=== PATIENT | female | born 1975 | race Caucasian/White ===

== ENCOUNTER 2020-06-03 12:45 | Outpatient (REF) | payer MEDICAID, SELFPAY ==
--- NOTE | 2020-06-03 13:00 | US_ITS ---
EXAMINATION: US PELVIS, COMPLETE CLINICAL INFORMATION: Excessive and frequent menses; the last menstrual period was on 05/26/2020. COMPARISON: None TECHNIQUE: Transabdominal and transvaginal imaging was performed. FINDINGS: The uterus is of normal size and echogenicity measuring 11.9 x 4.5 x 6.2 cm. The uterus is anteverted and anteflexed. A regular homogeneous endometrium is identified measuring 1.1 cm. Nabothian cysts are seen within the cervix Both ovaries are of normal echogenicity and show normal color Doppler flow. The right ovary measures 6.1 x 2.9 x 5.4 cm for a volume of 50.0 mL. The right ovary contains 2.7 cm and 2.7 cm in maximal diameter simple cysts. The left ovary measures 3.6 x 1.8 x 2.5 cm for a volume of 8.5 mL. The left ovary contains a 2.3 cm in maximal diameter simple cyst. There is no pelvic free fluid. No adnexal mass is seen. US/US pelvic complete IMPRESSION: 1. Simple bilateral ovarian cysts are noted, as above. 2. Nabothian cysts are seen within the cervix.
--- NOTE | 2020-06-03 13:02 | US_ITS ---
EXAMINATION: US PELVIS, COMPLETE CLINICAL INFORMATION: Excessive and frequent menses; the last menstrual period was on 05/26/2020. COMPARISON: None TECHNIQUE: Transabdominal and transvaginal imaging was performed. FINDINGS: The uterus is of normal size and echogenicity measuring 11.9 x 4.5 x 6.2 cm. The uterus is anteverted and anteflexed. A regular homogeneous endometrium is identified measuring 1.1 cm. Nabothian cysts are seen within the cervix Both ovaries are of normal echogenicity and show normal color Doppler flow. The right ovary measures 6.1 x 2.9 x 5.4 cm for a volume of 50.0 mL. The right ovary contains 2.7 cm and 2.7 cm in maximal diameter simple cysts. The left ovary measures 3.6 x 1.8 x 2.5 cm for a volume of 8.5 mL. The left ovary contains a 2.3 cm in maximal diameter simple cyst. There is no pelvic free fluid. No adnexal mass is seen. US/US transvaginal IMPRESSION: 1. Simple bilateral ovarian cysts are noted, as above. 2. Nabothian cysts are seen within the cervix.
== END 2020-06-03 12:46 | disposition home or self-care (01) ==
LOC: HO.HMGCX 12:45
PROVIDERS: PCP Internal Medicine; Visit Provider Advanced Practice Midwife
DX: N92.0 Excessive and frequent menstruation with regular cycle (principal)
CPT/HCPCS: 76830; 76856

== ENCOUNTER 2022-05-02 11:00 | Outpatient (RCR) | payer MEDICAID, SELFPAY | END 2022-07-20 08:21 | disposition home or self-care (01) | LOC: HO.PTCHIC 11:00 | PROVIDERS: PCP Internal Medicine; Visit Provider General Practice | DX: M25.562 Pain in left knee (principal) | CPT/HCPCS: 97110; 97161 ==

== ENCOUNTER 2023-05-26 14:20 | Outpatient (REF) | payer MEDICAID, SELFPAY ==
[2023-05-26 19:15] LABS: Influenza A PCR NEGATIVE (Negative); Influenza B PCR NEGATIVE (Negative); Resp Syncy Virus RNA Qual PCR NEGATIVE (Negative); SARS COV2 PCR INHOUSE NEGATIVE (Negative)
== END 2023-05-26 14:21 | disposition home or self-care (01) ==
LOC: HO.CHCLNP 14:20
PROVIDERS: Visit Provider Registered Nurse
DX: R05.9 Cough, unspecified (principal); Z11.52 Encounter for screening for COVID-19
CPT/HCPCS: 0241U; 87070

== ENCOUNTER 2023-08-24 10:54 | Outpatient (REF) | payer MEDICAID, SELFPAY ==
[2023-08-24 14:11] LABS: MANUAL DIFF FLAG NO
[2023-08-24 14:16] LABS: Basophils Absolute Auto 0.1 X10*3/uL (0.0-0.2); Basophils Percent Auto 0.8 % (0-2); Eosinophils Absolute Auto 0.4 X10*3/uL (0.0-0.4); Eosinophils Percent Auto 3.8 % (0-4); Hemoglobin 13.1 g/dl (12.0-16.0); Imm Gran Abs Auto 0.04 X10*3/uL (0.00-0.03); Imm Gran Pct Auto 0.4 % (0.0-0.4); Lymphocytes Absolute Auto 3.6 X10*3/uL (1.2-4.9); Lymphocytes Percent Auto 31.8 % (20-40); Mean Corpuscular HGB Conc 32.8 g/dl (31.0-35.0); Mean Corpuscular Hemoglobin 28.9 pg (27.0-33.0); Mean Corpuscular Volume 88.3 fL (80.0-98.0); Mean Platelet Volume 10.2 fL (9.4-12.3); Monocytes Absolute Auto 0.4 X10*3/uL (0.1-1.2); Monocytes Percent Auto 3.4 % (2-11); Neutrophils Absolute Auto 6.7 x10*3/uL (2.0-8.3); Neutrophils Percent Auto 59.8 % (45-73); Platelet Count 465 X10*3/uL (160-400); Red Blood Count 4.53 X10*6/uL (4.20-5.50); Red Cell Distribution Width 14.8 % (11.0-16.0); White Blood Count 11.2 X10*3/uL (4.8-10.8)
[2023-08-24 14:49] LABS: Alanine Aminotransferase 14 U/L (0-31); Alkaline Phosphatase 83 U/L (39-117); Anion Gap 15 (12-20); Aspartate Amino Transferase 13 U/L (5-31); Bilirubin Total 0.5 mg/dL (0.0-1.0); Blood Urea Nitrogen 12 mg/dL (9-16); Calcium 8.5 mg/dL (8.4-10.2); Carbon Dioxide 29 mmol/L (22-29); Chloride 100 mmol/L (96-108); Cholesterol 245 mg/dL (<200); Estimated Glomerular Filt Rate > 60; Glucose Random 76 mg/dL (60-115); HDL Cholesterol 50 mg/dL (>40); LDL Cholesterol Calculated 164 mg/dL (<100); Potassium 3.9 mmol/L (3.3-5.1); Sodium 140 mmol/L (135-145); Total Protein 7.4 g/dL (6.5-8.0); Triglycerides 156 mg/dL (<150)
[2023-08-24 15:05] LABS: TSH reflex Free T4 1.26 uIU/mL (0.32-4.0)
[2023-08-25 04:42] LABS: HIV AB/AG Nonreactive (Nonreactive); HIV Num 1 0.06 S/CO (0.00-0.99); ~HepC Num1 0.11 S/CO (0.00-0.79); ~Hepatitis C Antibody Nonreactive (Nonreactive)
== END 2023-08-24 10:55 | disposition home or self-care (01) ==
LOC: HO.CHCLDS 10:54
PROVIDERS: Visit Provider Internal Medicine
DX: Z11.4 Encounter for screening for human immunodeficiency virus [HIV] (principal); E11.9 Type 2 diabetes mellitus without complications; E78.00 Pure hypercholesterolemia, unspecified; E03.9 Hypothyroidism, unspecified
CPT/HCPCS: 36415; 80053; 80061; 84443; 85025; 86803; 87389

== ENCOUNTER 2024-08-20 10:11 | Outpatient (REF) | payer MEDICAID, SELFPAY ==
--- NOTE | ~2024-08-20 | XR_ITS ---
EXAMINATION: XR KNEE, RIGHT CLINICAL INFORMATION: Chronic knee pain, I suspect DJD COMPARISON: None available. TECHNIQUE: Three views of the right knee. FINDINGS: No fracture, dislocation, or suspicious bone lesion. Normal bone mineralization. Normal alignment. Moderate medial and mild to moderate patellofemoral and lateral compartment osteoarthrosis. Mild compensatory widening of the lateral compartment. Minimal subchondral sclerosis of the weightbearing medial femoral condyle. Small marginal osteophytic spurs present. There is spurring of the tibial spines. No significant joint effusion. Soft tissues appear normal. XR/XR knee RT 4V IMPRESSION: 1. No acute bony abnormalities. 2. 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 Electronically signed by: Scottie Snowden MD 08/20/2024 12:38 PM [facility]
--- NOTE | ~2024-08-20 | XR_ITS ---
EXAMINATION: XR KNEE, LEFT CLINICAL INFORMATION: Chronic knee pain, I suspect DJD COMPARISON: None available. TECHNIQUE: Three views of the left knee. FINDINGS: No fracture, dislocation, or suspicious bone lesion. Normal bone mineralization. Normal alignment. Mild to moderate medial compartment joint space narrowing with marginal osteophytic spurs. Minimal compensatory widening of the lateral compartment. Mild patellofemoral arthritis. Spurring of the tibial spines present. No significant joint effusion. Soft tissues appear normal. XR/XR knee LT 4V IMPRESSION: 1. No acute bony abnormalities. 2. Mild to moderate tricompartmental osteoarthritis most significant in the medial compartment. Electronically signed by: Scottie Snowden MD 08/20/2024 12:36 PM [facility]
--- OUTSIDE RECORDS SUMMARY | 2024-08-20 11:55 | XMS_ITS | Encounter Summary ---
Author Organization [employer] Address [address] [facility] 7 [place] [address] Care Team Providers Care Portable Trackman Name Role Phone Alhaji Noel MD Primary Care Provider +1- [phone] Reason for Visit * Reason Comments Med Change Request Encounter Details Date Type Department Care Team ([facility] st Contact Info) Description 04/24/[address] [facility] CH[facility] MED & PEDS [address] [place], [place] [phone] Alhaji Noel MD 505 [place] [address] Diabetes mellitus without complication (CMS/HCC) Social History Tobacco Use Types Packs/Day Years Used Date Smoking Tobacco: Never Passive Smoke Exposure: Never Smokeless Tobacco: Never Alcohol Use Standard Drinks/Week Comments Never 0 (1 standard drink = 0.6 oz pur e alcohol) Depression Answer Date Recorded Patient Health Questionnaire-9 Score 3 04/11/2023 Patient Health Questionnaire-9 Score 3 04/11/2023 Last PHQ-9: Questionnaire Data Not on file 1 Housing Stability Answer Date Recorded What is your housing situation today? I have jerri senior 04/11/[address] you li ve. Do you have problems with any of the following? None of the above 04/11/2023 Food Insecurity Answer Date Recorded Within the past 12 months, y ou worried that your food would run out before you got money to buy more: Never True 04/11/2023 Within the past 12 months,th e food you bought just didn't last and you didn't have enough money to get more: Never True Transportation Answer Date Recorded In the past 12 months, has l ack of transportation kept you from medical appts, meetings, work or from getting things needed for daily living? Yes, it has kept me from medical appointments or getting medications. 04/06/2023 Utilities Answer Date Recorded In the past 12 months, has t he electric, gas, oil or water company threatened to shut off services in your home? No 04/11/2023 Depression Answer Date Recorded Patient Health Questionnaire-2 Score 0 04/11/2023 Comments No Sex and Gender Information Value Date Recorded Sex Assigned at Female 04/25/2022 10:19 AM EDT Legal Sex Female 10:19 AM EDT Gender Identity Female 04/25/2022 10:19 AM EDT Sexual Orientation Straight 04/25/2022 10 :19 AM EDT documented as of this encounter Plan of Treatment Upcoming Encounters Date Type Department Care Team (Late st Contact Info) Description 09/20/2024 10:30 AM EDT Office Visit [facility] OPTOMETRY [address] [place] [address] Rafa, Maranda, OD [address] [place] [address] documented as of this encounter Visit Diagnoses Diagnosis Diabetes mellitus without complication (CMS/HCC) Type II or unspecified type diabetes mellitus without mention of complication, not stated as uncontrolled documented in this encounter Additional Health Concerns Assessment Noted Time PHQ-9 Depression Total Score: 3 04/11/20 23 10:36 AM EDT documented as of this encounter Care Teams Portable Trackman Relationship Specialty Start Date End Date Alhaji Noel MD [address] [place] [address] PCP - General Internal Medicine 06/26/18 Leslie Rojas Table Tender SludgeGate Operator 10/31/23 documented as of this encounter
--- OUTSIDE RECORDS SUMMARY | 2024-08-20 11:55 | XMS_ITS | Encounter Summary ---
Author Organization [employer] Address [address] [facility] [address] [place] [address] Care Team Providers Care Bilingual Executive Assistant Name Role Phone Alhaji Noel MD Primary Care Provider +1- [phone] Encounter Details Date Type Department Care Team ([facility] st Contact Info) Description 07/26/2024 Telephone [facility] OPTOMETRY [address] [place], [place] [phone] Rafa, Maranda, OD [address] [place] [address] Social History Tobacco Use Types Packs/Day Years [...] Description 09/20/2024 10:30 AM EDT Office Visit [facility] OPTOMETRY [address] [place], [place] [phone] Rafa, Maranda, OD [address] [place] [address] documented as of this encounter Visit Diagnoses Not on filedocumented in this encounter Additional Health Concerns Assessment Noted Time PHQ-9 Depression Total Score: 3 04/11/20 23 10:36 AM EDT documented as of this encounter Care Teams Bilingual Executive Assistant Relationship Specialty Start Date End Date Alhaji Noel MD [address] [place] [address] PCP - General Internal Medicine 06/26/18 Leslie Rojas Canal Boat OperatorStadium Manager 10/31/23 documented as of this encounter
--- OUTSIDE RECORDS SUMMARY | 2024-08-20 11:55 | XMS_ITS | Encounter Summary ---
Author Organization [employer] Address [address] [place] [address] 7 [place] [address] Care Team Providers Care Truck Jumper Name Role Phone Alhaji Noel MD Primary Care Provider +1- [phone] Encounter Details Date Type Department Care Team (Late Contact Info) Description 02/08/2023 Orders Only [facility] CHC MED & PEDS [address] [place], [place] [phone] Alhaji Noel MD [address] [place], [place] [phone] Diabetes mellitus without complication (CMS/HCC) (Primary Dx) Social History Tobacco Use Types Packs/Day Years Used Date Smoking Tobacco: Never Passive Smoke Exposure: Never Smokeless Tobacco: Never Alcohol Use Standard Drinks/Week Comments Never 0 (1 standard drink = 0.6 oz pur e alcohol) Comments No Sex and Gender Information Value Date Recorded Sex Assigned at Female 04/25/2022 10:19 AM EDT Legal Sex Female 10:19 AM EDT Gender Identity Female 04/25/2022 10:19 AM EDT Sexual Orientation Straight 04/25/2022 10 :19 AM EDT documented as of this encounter Plan of Treatment Upcoming Encounters Date Type Department Care Team (Late Contact Info) Description 09/20/2024 10:30 AM EDT Office Visit [facility] OPTOMETRY [address] [place], [place] [phone] RafaMaranda momin, OD [address] [place], [place] [phone] documented as of this encounter Visit Diagnoses Diagnosis Diabetes mellitus without complication (CMS/HCC)- Primary Type II or unspecified type diabetes mellitus without mention of complication, not stated as uncontrolled documented in this encounter Care Teams Truck Jumper Relationship Specialty Start Date End Date Alhaji Noel MD [address] [place] [address] PCP - General Internal Medicine 06/26/18 Leslie Rojas Interactive Web DeveloperMetal Roofing Mechanic 10/31/23 documented as of this encounter
--- OUTSIDE RECORDS SUMMARY | 2024-08-20 11:55 | XMS_ITS | Encounter Summary ---
Author Organization [employer] Address [address] [facility] 7 [place] [address] Care Team Providers Care Bariatric Physician Name Role Phone Alhaji Noel MD Primary Care Provider +1- [phone] Reason for Visit * Reason Onset Date Comments PT1 06/12/2024 Encounter Details Date Type Department Care Team ([facility] st Contact Info) Description 06/12/2024 Telephone [facility] MEDICINE [address] [place] [address] Alhaji Noel MD [address] [facility] [address] [place], [place] [phone] PT1 Social History Tobacco Use Types Packs/Day Years [...] is your housing situation today? I have jerridale senior 04/11/[address] you [...] AM EDT documented as of this encounter Miscellaneous Notes * Telephone Encounter - Yassine Saba - 06/12/2024 3:20 PM EST Patient calling requesting PT1 Home Address verified: Y/N: Yes Provider name or facility name: [address] [facility] [address] Escort needed: Y/N: No Do you have a wheelchair: Y/N: No If yes- Manual or electric: Visits: (4) (monthly) Patient calling requesting PT1 Home Address verified: Y/N: No Provider name or facility name: [address] [facility] [address] Escort needed: Y/N: No Do you have a wheelchair: Y/N: No If yes- Manual or electric: Visits: (4) ( monthly) documented in this encounter Plan of Treatment Upcoming Encounters Date Type Department Care Team (Late st Contact Info) Description 09/20/2024 10:30 AM EDT Office Visit [facility] OPTOMETRY [address] [place] [address] Rafa, Maranda, OD [address] [place] [address] documented as of this encounter Visit Diagnoses Not on filedocumented in this encounter Additional Health Concerns Assessment Noted Time PHQ-9 Depression Total Score: 3 04/11/20 23 10:36 AM EDT documented as of this encounter Care Teams Bariatric Physician Relationship Specialty Start Date End Date Alhaji Noel MD [address] [place] [address] PCP - General Internal Medicine 06/26/18 Leslie Rojas Furniture StainerClerk Carrier 10/31/23 documented as of this encounter
--- OUTSIDE RECORDS SUMMARY | 2024-08-20 11:55 | XMS_ITS | Encounter Summary ---
Author Organization [employer] Address [address] [facility] 7 [place] [address] Care Team Providers Care Pediatric Orthodontist Name Role Phone Alhaji Noel MD Primary Care Provider +1- [phone] Reason for Visit * Reason Onset Date Comments Med Refill 07/17/2023 Encounter Details Date Type Department Care Team (Late st Contact Info) Description 07/17/2023 Refill [facility] [address] [place] [address] Alhaji Noel MD [address] [facility] [address] [place], [place] [phone] Localized osteoarthritis of left knee Social History Tobacco Use Types Packs/Day Years [...] your housing situation today? I have jerri nadeen 04/11/[address] you li [...] Description 09/20/2024 10:30 AM EDT Office Visit [facility] OPTOMETRY [address] [place] [address] Rafa, Maranda, OD [address] [place] [address] documented as of this encounter Visit Diagnoses Diagnosis Localized osteoarthritis of left knee documented in this encounter Additional Health Concerns Assessment Noted Time PHQ-9 Depression Total Score: 3 04/11/20 23 10:36 AM EDT documented as of this encounter Care Teams Pediatric Orthodontist Relationship Specialty Start Date End Date Alhaji Noel MD [address] [place] [address] PCP - General Internal Medicine 06/26/18 Leslie Rojas Senior Automation EngineerSnow Remover 10/31/23 documented as of this encounter
--- OUTSIDE RECORDS SUMMARY | 2024-08-20 11:55 | XMS_ITS | Encounter Summary ---
Author Organization [employer] Address [address] [facility] 7 [place] [address] Care Team Providers Care Optimization Specialist Name Role Phone Alhaji Noel MD Primary Care Provider +1- [phone] Reason for Visit * Reason Comments Med Change Request Encounter Details Date Type Department Care Team ([facility] st Contact Info) Description 04/26/[address] [facility] CHC MED & PEDS [address] [place], [place] [phone] Alhaji Noel MD 505 [place] [address] Diabetes mellitus without complication (CMS/HCC) Social History [...] Description 09/20/2024 10:30 AM EDT Office Visit [facility] OPTOMETRY [address] [place] [address] Rafa, Maranda, OD [address] [place] [address] documented as of this encounter Visit Diagnoses Diagnosis Diabetes mellitus without complication (CMS/HCC) Type II or unspecified type diabetes mellitus without mention of complication, not stated as uncontrolled documented in this encounter Additional Health Concerns Assessment Noted Time PHQ-9 Depression Total Score: 3 04/11/20 23 10:36 AM EDT documented as of this encounter Care Teams Optimization Specialist Relationship Specialty Start Date End Date Alhaji Noel MD [address] [place] [address] PCP - General Internal Medicine 06/26/18 Leslie Rojas Activities AttendantWood Filler 10/31/23 documented as of this encounter
--- OUTSIDE RECORDS SUMMARY | 2024-08-20 11:55 | XMS_ITS | Encounter Summary ---
Author Organization [employer] Address [address] [facility] 7 [place] [address] Care Team Providers Care Historic Clothing And Costume Maker Name Role Phone Alhaji Noel MD Primary Care Provider +1- [phone] Reason for Visit * Reason Onset Date Comments PT-1 02/14/2024 Encounter Details Date Type Department Care Team (Late st Contact Info) Description 02/14/2024 Telephone [facility] MEDICINE [address] [place] [address] Alhaji Noel MD [address] [facility] [address] [place], [place] [phone] PT-1 Social History Tobacco Use Types Packs/Day Years [...] encounter Miscellaneous Notes * Telephone Encounter - Julio Diaz - 02/14/2024 11:17 AM EDT Patient calling requesting PT1 Home Address verified: Y/N: Yes Provider name or facility name: [facility] Facility Address: [address] [place] [address] Escort needed: Y/N: No Do you have a wheelchair: Y/N: No If yes- Manual or electric: N/A Visits: 3 monthly documented in this encounter Plan of Treatment Upcoming Encounters Date Type Department Care Team (Late st Contact Info) Description 09/20/2024 10:30 AM EDT Office Visit [facility] OPTOMETRY [address] [place] [address] Maranda Craig, OD [address] [place] [address] documented as of this encounter Visit Diagnoses Not on filedocumented in this encounter Additional Health Concerns Assessment Noted Time PHQ-9 Depression Total Score: 3 04/11/20 23 10:36 AM EDT documented as of this encounter Care Teams Historic Clothing And Costume Maker Relationship Specialty Start Date End Date Alhaji Noel MD 505 [place] [address] PCP - General Internal Medicine 06/26/18 Leslie Rojas Director Of Public HealthFax Machine Repairer 10/31/23 documented as of this encounter
--- OUTSIDE RECORDS SUMMARY | 2024-08-20 11:55 | XMS_ITS | Encounter Summary ---
Author Organization [employer] Address [address] [facility] 7 [place] [address] Care Team Providers Care Supervisor Asphalt Paving Name Role Phone Alhaji Noel MD Primary Care Provider +1- [phone] Reason for Visit * Reason Onset Date Comments rs appt/.no show 04/01/2024 Encounter Details Date Type Department Care Team ([facility] Contact Info) Description 04/01/2024 Telephone [facility] ADULT DENTAL [address] [place] [address] BeltránSheryl milesanpreet [address] [place], [place] [phone] rs appt/.no show Social History Tobacco Use Types Packs/Day Years [...] encounter Miscellaneous Notes * Telephone Encounter - Felicita Lafleur - 04/11/2024 8:39 AM EDT Patient called in to rs her no show appt on 04/01. She is aware that she must wait for a call from [facility] to reschedule the appt due to no show. She explained that she is in pain and infection. Explained to patient the emergency visit protocol. She said she could not come in today due to having her child at home but will call another day * Telephone Encounter - Felicita Lafleur - 04/01/2024 2:21 PM EDT Patient called in to reschedule her no show appt on 04/01. She states she was in another appt with her children and was unable to call because her phone . Patient has been informed that office will contact her for rescheduling. DR Solizally signed by Felicita Lafleur at 04/01/2024 2:24 PM EDT documented in this encounter Plan of Treatment Upcoming Encounters Date Type Department Care Team (Late st Contact Info) Description 09/20/2024 10:30 AM EDT Office Visit [facility] OPTOMETRY [address] [place] [address] Maranda Craig, OD [address] [place] [address] documented as of this encounter Visit Diagnoses Not on filedocumented in this encounter Additional Health Concerns Assessment Noted Time PHQ-9 Depression Total Score: 3 04/11/20 23 10:36 AM EDT documented as of this encounter Care Teams Supervisor Asphalt Paving Relationship Specialty Start Date End Date Alhaji Noel MD [address] [place] [address] PCP - General Internal Medicine 06/26/18 Leslie Rojas Auto Body Mechanic ApprenticeCottage Attendant 10/31/23 documented as of this encounter
--- OUTSIDE RECORDS SUMMARY | 2024-08-20 11:55 | XMS_ITS | Encounter Summary ---
Author Organization [employer] Address 75 [facility] 7 [place] [address] Care Team Providers Care Estimator Binding Name Role Phone Alhaji Noel MD Primary Care Provider +1- [phone] Reason for Visit * Reason Onset Date Comments Med Refill 07/17/2023 Encounter Details Date Type Department Care Team ([facility] st Contact Info) Description 07/17/2023 Refill [facility] MED & PEDS [address] [place] [address] Shyla Zuniga MD [address] [place] [address] Viral upper respiratory tract infection Social History Tobacco Use Types Packs/Day Years [...] Description 09/20/2024 10:30 AM EDT Office Visit [facility] OPTOMETRY [address] [place] [address] RafaMaranda, OD [address] [place] [address] documented as of this encounter Visit Diagnoses Diagnosis Viral upper respiratory tract infection Acute upper respiratory infections of unspecified site documented in this encounter Additional Health Concerns Assessment Noted Time PHQ-9 Depression Total Score: 3 04/11/20 23 10:36 AM EDT documented as of this encounter Care Teams Estimator Binding Relationship Specialty Start Date End Date Alhaji Noel MD [address] [place] [address] PCP - General Internal Medicine 06/26/18 Leslie Rojas Marine Fuel Dock AttendantPipelayer 10/31/23 documented as of this encounter
--- OUTSIDE RECORDS SUMMARY | 2024-08-20 11:55 | XMS_ITS | Encounter Summary ---
Author Organization [employer] Address [address] [facility] 7 [place] [address] Care Team Providers Care Machine Pack Assembler Name Role Phone Alhaji Noel MD Primary Care Provider +1- [phone] Reason for Visit * Reason Comments Med Refill Encounter Details Date Type Department Care Team (Late st Contact Info) Description 08/06/2024 Refill [facility] [address] [place] [address] Alhaji Noel MD [address] [facility] [address] [place], [place] [phone] Social History Tobacco Use Types Packs/Day Years [...] Description 09/20/2024 10:30 AM EDT Office Visit [facility] OPTOMETRY [address] [place] [address] Rafa, Maranda, OD [address] [facility] [address] documented as of this encounter Visit Diagnoses Not on filedocumented in this encounter Additional Health Concerns Assessment Noted Time PHQ-9 Depression Total Score: 3 04/11/20 23 10:36 AM EDT documented as of this encounter Care Teams Machine Pack Assembler Relationship Specialty Start Date End Date Alhaji Noel MD [address] [place] [address] PCP - General Internal Medicine 06/26/18 Leslie Rojas Cloth HandlerPolice Service Technician 10/31/23 documented as of this encounter
--- OUTSIDE RECORDS SUMMARY | 2024-08-20 11:55 | XMS_ITS | Encounter Summary ---
Author Organization [employer] Address [address] [facility] 7 [place] [address] Care Team Providers Care Shearer Operator Name Role Phone Alhaji Nole MD Primary Care Provider +1- [phone] Encounter Details Date Type Department Care Team (Latest Contact Info) Description 08/25/2023 Orders Only [facility] CHC MED & PEDS [address] [place], [place] [phone] Alhaji Noel MD 505 [place] [address] Hypercholesterolemia (Primary Dx) Social History Tobacco Use Types [...] enough money to get more: Never True 10/ Transportation Answer Date Recorded In the past [...] Description 09/20/2024 10:30 AM EDT Office Visit [facility] OPTOMETRY [address] [place] [address] RafaMaranda, OD [address] [place] [address] documented as of this encounter Visit Diagnoses Diagnosis Hypercholesterolemia- Primary Pure hypercholesterolemia documented in this encounter Additional Health Concerns Assessment Noted Time PHQ-9 Depression Total Score: 3 04/11/20 23 10:36 AM EDT documented as of this encounter Care Teams Shearer Operator Relationship Specialty Start Date End Date Alhaji Noel MD [address] [place] [address] PCP - General Internal Medicine 06/26/18 Leslie Rojas Canvas MarkerCirculation Tender 10/31/23 documented as of this encounter
--- OUTSIDE RECORDS SUMMARY | 2024-08-20 11:55 | XMS_ITS | Encounter Summary ---
Author Organization [employer] Address [address] [facility] 7 [place] [address] Care Team Providers Care Solar Engineer Name Role Phone Alhaji Noel MD Primary Care Provider Reason for Visit * Reason Onset Date Comments Med Refill 06/13/2022 Encounter Details Date Type Department Care Team (Late st Contact Info) Description 06/13/2022 Refill [facility] [address] [place] [address] Alhaji Noel MD [address] [place], [place] [id number] Mild intermittent asthma without complication (Primary Dx) Social History Tobacco Use Types Packs/Day Years Used Date Smoking Tobacco: Never Passive Smoke Exposure: Never Smokeless Tobacco: Never Alcohol Use Standard Drinks/Week Comments Never 0 (1 standard drink = 0.6 oz pur e alcohol) Comments Unknown Sex and Gender Information Value Date Recorded Sex Assigned at Female 04/25/2022 10:19 AM EDT Legal Sex Female 10:19 AM EDT Gender Identity Female 04/25/2022 10:19 AM EDT Sexual Orientation Straight 04/25/2022 10 :19 AM EDT COVID-19 Exposure Response Date Recorded In the last 10 days, have yo u been in contact with someone who was confirmed or suspected to have Coronavirus/COVID-19? No / Unsure 06/03/2022 1:17 PM EST documented as of this encounter Miscellaneous Notes * Telephone Encounter - Fabricio Davis - 06/13/2022 4:49 PM EST Tc from pt requesting medication refill ( Albuterol 180 ) Last seen on 04/05/[address] Noel documented in this encounter Plan of Treatment Upcoming Encounters Date Type Department Care Team (Late st Contact Info) Description 09/20/2024 10:30 AM EDT Office Visit [facility] [address] [place] [address] Maranda Craig, OD [address] [place] [address] documented as of this encounter Visit Diagnoses Diagnosis Mild intermittent asthma without complication- Primary documented in this encounter Care Teams Solar Engineer Relationship Specialty Start Date End Date Alhaji Noel MD [address] [place] [address] PCP - General Internal Medicine 06/26/18 Leslie Rojas Yacht MasterProfessor Of Oceanography 10/31/23 documented as of this encounter
--- OUTSIDE RECORDS SUMMARY | 2024-08-20 11:55 | XMS_ITS | Encounter Summary ---
Author Organization [employer] Address [address] [place] [address] 7 [place] [address] Care Team Providers Care Rounding Machine Tender Name Role Phone Alhaji Noel MD Primary Care Provider +1- [phone] Reason for Visit * Reason Onset Date Comments PT1 07/02/2024 Encounter Details Date Type Department Care Team ([facility] st Contact Info) Description 07/02/2024 Telephone [facility] [address] [place] [address] Alhaji Noel MD [address] [place] [address] PT1 Social History Tobacco Use Types Packs/Day [...] encounter Miscellaneous Notes * Telephone Encounter - Mariya Hernandez - 07/02/2024 11:34 AM EST Patient calling requesting PT1 Home Address verified: Y/N: Yes Provider name or facility name: [facility] Facility Address: [address] [facility] Escort needed: Y/N: No Do you have a wheelchair: Y/N: No If yes- Manual or electric: n/a Visits: 4x a month documented in this encounter Plan of Treatment Upcoming Encounters Date Type Department Care Team (Late st Contact Info) Description 09/20/2024 10:30 AM EDT Office Visit [facility] [address] [place] [address] Maranda Craig, OD [address] [place] [address] documented as of this encounter Visit Diagnoses Not on filedocumented in this encounter Additional Health Concerns Assessment Noted Time PHQ-9 Depression Total Score: 3 04/11/20 23 10:36 AM EDT documented as of this encounter Care Teams Rounding Machine Tender Relationship Specialty Start Date End Date Alhaji Noel MD [address] [place] [address] PCP - General Internal Medicine 06/26/18 Leslie Rojsa Sales Solutions AssociateHydroelectric Machinery Mechanic 10/31/23 documented as of this encounter
--- OUTSIDE RECORDS SUMMARY | 2024-08-20 11:55 | XMS_ITS | Encounter Summary ---
Author Organization [employer] Address [address] [place] [address] [place] [address] Care Team Providers Care [employer] Law Clerk Name Role Phone Alhaji Noel MD Primary Care Provider +1- [phone] Encounter Details Date Type Department Care Team (Latest Contact Info) Description 08/04/[address] [facility] Dental, Provider, DDS Social History Tobacco Use Types Packs/Day Years Used Date Smoking Tobacco: Never Assessed Comments Unknown Sex and Gender Information Value [...] 09/20/2024 10:30 AM EDT Office Visit [facility] [address] [place] [address] Maranda Craig, OD [address] [place] [address] documented as of this encounter Visit Diagnoses Not on filedocumented in this encounter Care Teams [employer] Law Clerk Relationship Specialty Start Date End Date Alhaji Noel MD [address] [place] [address] PCP - General Internal Medicine 06/26/18 Leslie Rojas Learning Disabilities SpecialistRoller Printer 10/31/23 documented as of this encounter
--- OUTSIDE RECORDS SUMMARY | 2024-08-20 11:55 | XMS_ITS | Clinical Summary ---
Author Organization [facility] Address [address] [place] [address] Care Team Providers Care Tool Salvage Worker Name Role Phone Alhaji Noel MD Primary Care Provider +1 -[phone] Allergies No known active allergies Medications calcium citrate-vitamin D (Calcium Citrate + D) 315 mg-5 mcg (200 unit) per tablet Take 2 tablets by mouth 3 times daily. Active FREESTYLE LANCETS MISC Test three times a day or as directed Active glucose blood test strip TEST 4 TIMES DAILY Active ibuprofen (ADVIL,MOTRIN) 800 mg tablet TAKE 1 TABLET BY MOUTH EVERY 8 HOURS NEEDED FOR PAIN Active multivitamin/ir on/folic acid (CENTRUM ORAL) Take 1 Tab by mouth daily. Active albuterol HFA (PROAIR HFA ; PROVENTIL HFA ; VENTOLIN HFA) 90 mcg/actuation inhaler Inhale 2 Puffs into the lungs 4 times daily as needed for Cough, Wheezing or Shortness of Breath. Active cholecalciferol (VITAMIN D-3) 1,250 mcg (50,000 unit) capsule Take 1 Cap by mouth every 7 days. Active cloNIDine (CATAPRES) 0.1 mg tablet TAKE 1 TABLET(S) BY MOUTH AT BEDTIME MAY TAKE 2 AND 1 FOR MID-NIGHT AWAKENING Active famotidine (PEPCID) 40 mg tablet Take 1 Tab by mouth daily. Active fluticasone HFA (FLOVENT HFA) 110 mcg/actuation inhaler Inhale 2 Puffs into the lungs 2 times daily. Active levothyroxine (SYNTHROID, LEVOTHROID) 100 mcg tablet Take 1 Tab by mouth daily. Take 1/2 tab on Monday Active loratadine (CLARITIN) 10 mg tablet Take 1 Tab by mouth daily. Active metFORMIN (GLUCOPHAGE) 500 mg tablet TAKE 1 TABLET TWICE A DAY WITH MEALS Active sertraline (ZOLOFT) 100 mg tablet Take 1 Tab by mouth 2 times daily. Active simvastatin (ZOCOR) 20 mg tablet Take 1 Tab by mouth at bedtime. Active Active Problems Problem Noted Date Diagnosed Date Depression 07/11/2024 Hypothyroidism 07/11/2024 Hypocalcemia 10/27/2014 Hyperparathyroidism 09/30/2014 Overview (07/11/2024): 3 gland excision, 09/24/2014, Dr. Swartz Asthma 07/31/2013 Vitamin D deficiency 05/15/2013 Hyperlipidemia 11/04/2011 Diabetes type 2, controlled 02/08/2010 Intellectual disability 04/08/2009 Overview (07/11/2024): DSS has other 3 children Threatening to take present baby out of state right after delivery Morbid obesity 11/19/2008 Immunizations Name Administration Dates Next Due H1N1 Inj Preservative Free 04/13/2009 Influenza trivalent, with pr eservative (Fluzone; Afluria) 6mo and older 04/02/2012,04/22/2010,03/06/2009 Pneumococcal polysaccharide 23 valent (Pneumovax 23) 2yo and older 11/21/2013 Tdap Tetanus diptheria acell ular pertussis (Boostrix; Adacel) 7yo and older 10/10/2007 Surgical History Surgery Date Site/Laterality Comments TONSILLECTOMY PROCEDURE: HISTORICAL TONSILLECTOMY Medical History Medical History Date Comments Depression DX:Depression Diabetes type 2, controlled ([facility]) 02/08/2010 DX:Diabetes type 2, controlled ([facility]) Hyperlipidemia DX:Hyperlipidemi a Morbid obesity ([facility]) DX:Morb id obesity (HCC) RAD (reactive airway disease) DX :RAD (reactive airway disease) Family History Medical History Relation Name Comments Colon cancer Father Other: COPD Father Breast cancer Maternal Grandmother unknow n age at diagnosis Ovarian cancer Neg Hx Uterine cancer Neg Hx Relation Name Status Comments Father Alive Maternal Grandmother breast cancer in late 30's Mother Alive Sister 1 Alive Sister 2 Alive Sister 3 Alive Social History Tobacco Use Types Packs/Day Years Used Date Smoking Tobacco: Never Smokeless Tobacco: Never Alcohol Use Standard Drinks/Week Comments No 0 (1 standard drink = 0.6 oz pur e alcohol) Comments Unknown Sex and Gender Information Value Date Recorded Sex Assigned at Not on file Legal Sex Female 2:36 AM EST Gender Identity Not on file Sexual Orientation Not on file Obstetrics History Plan of Treatment Upcoming Encounters Date Type Department Care Team (Late st Contact Info) Description 08/30/2024 9:00 AM EST Consult [facility] [address] [place] [address] Leisa Aparicio MD [address] [place] [address] Health Maintenance Due Date Last Done Comments Breast Cancer Screening 1975 Diabetes: Annual Foot Exam 1985 Diabetes: Annual Retina Eye Exam 1985 Hepatitis B Vaccines (1 of 3 - 19+ 3-dose series) 1994 Pneumococcal Vaccine: Pediatrics (0 to 5 Years) and At-Risk Patients (6 to 64 Years) (2 of 2 - PCV) 11/21/2014 11/21/2013 Diabetes: Annual GFR (Glomerular Filtration Rate) 10/02/2015 10/01/2014 Cervical Cancer Screening: Pap Smear 11/02/2015 11/01/2012, 11/01/2012 DTaP,Tdap,and Td Vaccines (2 - Td or Tdap) 10/09/2017 10/10/2007 COVID-19 Vaccine ( season) 2024 Influenza Vaccine (#1) 2024 2, 04/22/2010, 04/13/2009, Additional history exists Cholesterol Screening (Lipid Panel) 07/10/2024 08/29/2014 Colorectal Cancer Screening: Colonoscopy 07/10/2024 Depression Screening 07/10/2024 Diabetes: Annual Urine Albumin-Creatinine Ratio (uACR) 07/10/2024 08/29/2014 Diabetes: Blood Sugar Control Test (HGBA1C) 07/10/2024 08/29/2014 Hepatitis C Screening 07/10/2024 Social Influencers of Health Screening 07/10/2024 HIV Screening Completed 09/13/2008 HIB Vaccines Aged Out No longer eligi ble based on patient's age to complete this topic HPV Vaccines Aged Out No longer eligi ble based on patient's age to complete this topic Hepatitis A Vaccines Aged Out No long er eligible based on patient's age to complete this topic IPV Vaccines Aged Out No longer eligi ble based on patient's age to complete this topic MMR Vaccines Aged Out No longer eligi ble based on patient's age to complete this topic Meningococcal ACWY Vaccine Aged Out N o longer eligible based on patient's age to complete this topic Meningococcal B Vacine Aged Out No lo nger eligible based on patient's age to complete this topic RSV Immunization Patients Under 20 months Aged Out No longer eligible based on patient's age to complete this topic Varicella Vaccines Aged Out No longer eligible based on patient's age to complete this topic Procedures Procedure Name Priority Date/Time Associated Diagnosis Comments ANNUAL BMP BLOOD TEST Routine 10/01/2014 URINE ALBUMIN CREATININE RATIO Routine 08/29/2014 HEMOGLOBIN A1C Routine 08/29/2014 LIPID PANEL Routine 08/29/2014 HPV Routine 11/01/2012 HIV SCREENING Routine 09/13/2008 from Last 3 Months or Most Recently Relevant to Health Maintenance Results * Annual BMP Blood Test (10/01/2014) Pathologist [facility] Annual BMP Blood Test abstracted Historical Provider HEALTH MAINTENANCE Final Result * Urine Albumin Creatinine Ratio (08/29/2014) Pathologist [facility] Urine Albumin Creatinine Ratio abstracted Historical Provider HEALTH MAINTENANCE Final Result * Hemoglobin A1c (08/29/2014) Pathologist [facility] Hemoglobin A1C 5.7 4.0 - 6.0 % Blood Venous blood specimen / Unknown Historical Provider LAB BLOOD ORDERABLES Barbara l Result * (ABNORMAL) Lipid panel (08/29/2014) [facility] LDL/HDL Ratio 6(A) 0 - 4 Triglycerides 194(A) 0 - 150 mg/dL Cholesterol 253(A) 0 - 200 mg/dL HDL 44 >=40 mg/dL LDL Cholesterol 171(A) 0 - 100 mg/dL Blood Venous blood specimen / Unknown Historical Provider LAB BLOOD ORDERABLES Barbara l Result * Cervical Cancer Screening: HPV (11/01/2012) [facility] Cervical Cancer Screening: HPV no interpretation abstracted [facility] Provider HEALTH MAINTENANCE Final Result * HIV Screening (09/13/2008) [facility] HIV Screening abstracted [facility] Provider HEALTH MAINTENANCE Final Result from Last 3 Months or Most Recently Relevant to Health Maintenance Insurance MEDICAID - [place] Care Teams Tool Salvage Worker Relationship Specialty Start Date End Date Alhaji Noel MD [address] [place], [place] PCP - General 07/25/15
--- OUTSIDE RECORDS SUMMARY | 2024-08-20 11:55 | XMS_ITS | Encounter Summary ---
Author Organization [employer] Address [address] [facility] 7 [place] [address] Care Team Providers Care Cognos Consultant Name Role Phone Alhaji Noel MD Primary Care Provider +1- [phone] Reason for Visit * Reason Onset Date Comments Med Refill 07/17/2023 Encounter Details Date Type Department Care Team ([facility] st Contact Info) Description 07/17/2023 Refill [facility] PEDS [address] [place] [address] Bhakti Raymond MD [address] [place] [address] Social History Tobacco Use Types Packs/Day Years [...] Description 09/20/2024 10:30 AM EDT Office Visit [facility] [address] [place] [address] Rafa, Maranda, OD [address] [place] [address] documented as of this encounter Visit Diagnoses Not on filedocumented in this encounter Additional Health Concerns Assessment Noted Time PHQ-9 Depression Total Score: 3 04/11/20 23 10:36 AM EDT documented as of this encounter Care Teams Cognos Consultant Relationship Specialty Start Date End Date Alhaji Noel MD [address] [place] [address] PCP - General Internal Medicine 06/26/18 Leslie Rojas Figure Refinisher And RepairerRug Cleaner Hand 10/31/23 documented as of this encounter
--- OUTSIDE RECORDS SUMMARY | 2024-08-20 11:55 | XMS_ITS | Encounter Summary ---
Author Organization [employer] Address [address] [facility] 7t [place] [address] Care Team Providers Care Recreation Facility Manager Name Role Phone Alhaji Noel MD Primary Care Provider +1- [phone] Reason for Referral * Consultation (Routine) - Closed Specialty Diagnoses / Procedures Referred By Contac t Referred To Contact Physical Therapy Diagnoses Chronic knee pain, unspecified laterality Trevor [place] MD [address] [place] [address] Phone: tel: fax: Physical Therapy, AT [address] [place] Phone: tel: fax: Referral ID Status Reason Start Date Expiration Date V isits Requested Visits Authorized [id number] Closed Specialty Services Required 08/20/2024 08/20/2025 20 20 Reason for Visit * Reason Comments Leg Pain Encounter Details Date Type Department Care Team (Late st Contact Info) Description 08/20/2024 9:40 AM EST Office Visit [facility] [address] [place] [phone] Trevor Dowling MD [address] [place] [phone] Chronic knee pain, unspecified laterality (Primary Dx) Social History Tobacco Use Types [...] AM EDT documented as of this encounter Last Filed Vital Signs Vital Sign Reading Time Taken Comments Blood Pressure 140/82 08/20/2024 9:44 AM EST Pulse 74 08/20/2024 9:44 AM EST Temperature 36.8 ??C (98.3 ??F) 08/20/2024 9:44 AM ES T Respiratory Rate 18 08/20/2024 9:44 AM EST Oxygen Saturation 98% 08/20/2024 9:44 AM EST Inhaled Oxygen Concentration - - Weight 149 kg (329 lb) 08/20/2024 9:44 AM EST Height - - Body Mass Index 60.17 06/24/2024 2:04 PM EST documented in this encounter Progress Notes * Trevor Dowling MD - 08/20/2024 9:40 AM EST Subjective Patient ID: Belle Woody is a 49 y.o. female who presents for Leg Pain. Patient comes complaining of chronic bilateral knee pain. Pain is worse with weightbearing activities. The patient can walk for less than half a block because of the pain. She has a past medical history of morbid obesity. She denies any recent trauma. She has been using Tylenol and ibuprofen at home without symptomatic improvement. Review of Systems Constitutional: Negative for chills and fever. HENT: Negative for sore throat. Respiratory: Negative for cough, shortness of breath and wheezing. Cardiovascular: Negative for chest pain, palpitations and leg swelling. Gastrointestinal: Negative for abdominal pain. Musculoskeletal: See HPI Visit Vitals BP (!) 140/82 (BP Location: Left arm, Patient Position: Sitting, BP Cuff Size: Large adult) Pulse 74 Temp 98.3 ??F (36.8 ??C) (Temporal) Resp 18 Wt 329 lb (149 kg) SpO2 98% BMI 60.17 kg/m?? OB Status Having periods Smoking Status Never BSA 2.55 m?? Objective Physical Exam Constitutional: General: She is not in acute distress. Appearance: She is obese. Cardiovascular: Rate and Rhythm: Normal rate and regular rhythm. Pulmonary: Effort: Pulmonary effort is normal. No respiratory distress. Musculoskeletal: Comments: I did not appreciate any knee swelling. Exam might be limited because of the patient's morbid obesity. The patient describes discomfort with active and passive range of motion of both knees. Assessment/Plan Diagnoses and all orders for this visit: Chronic knee pain, unspecified laterality Comments: I suspect knee pain secondary to DJD. I recommended to discontinue Motrin. I recommended a course of Celebrex. She may continue using OTC Tylenol 3 times a day as needed. I recommended evaluation with knee x-rays. Referral to physical therapy. Orders: - XR Knee 4+ Views Right; Future - XR Knee 4+ Views Left; Future - Referral to Physical Therapy; Future Other orders - celecoxib (CeleBREX) 200 MG capsule; Take 1 capsule (200 mg) by mouth 2 times daily for 20 days. documented in this encounter Plan of Treatment Upcoming Encounters Date Type Department Care Team (Late st Contact Info) Description 09/20/2024 10:30 AM EDT Office Visit [facility] [address] [place] [address] Rafa, Maranda, OD [address] [place] [address] Scheduled Orders Name Type Priority Associated Diagnoses Orde r Schedule XR Knee 4+ Views Right Imaging Routine Chronic knee pain, unspecified laterality Expected: 08/20/2024, Expires: 08/20/2025 XR Knee 4+ Views Left Imaging Routine Chronic knee pain, unspecified laterality Expected: 08/20/2024, Expires: 08/20/2025 Scheduled Referrals Name Type Priority Associated Diagnoses Orde r Schedule Referral to Physical Therapy Outpatient Referral Routine Chronic knee pain, unspecified laterality Expected: 08/20/2024 (Approximate), Expires: 08/20/2025 documented as of this encounter Visit Diagnoses Diagnosis Chronic knee pain, unspecified laterality- Primary documented in this encounter Additional Health Concerns Assessment Noted Time PHQ-9 Depression Total Score: 3 04/11/20 23 10:36 AM EDT documented as of this encounter Care Teams Recreation Facility Manager Relationship Specialty Start Date End Date Alhaji Noel MD [address] [place] [address] PCP - General Internal Medicine 06/26/18 Leslie Rojas Supervisor DehydrogenationSaw Operator 10/31/23 documented as of this encounter
--- OUTSIDE RECORDS SUMMARY | 2024-08-20 11:55 | XMS_ITS | Encounter Summary ---
Author Organization [employer] Address [address] [place] [address] 7 [place] [address] Care Team Providers Care Contact Acid Plant Operator Helper Name Role Phone Alhaji Noel MD Primary Care Provider +1- [phone] Reason for Visit * Reason Onset Date Comments Durable Medical Equipment 02/07/2023 Encounter Details Date Type Department Care Team ([facility] st Contact Info) Description 02/07/2023 Telephone [facility] [address] [place] [address] Alhaji Noel MD [address] [place] [address] Durable Medical Equipment Social History Tobacco Use Types Packs/Day Years [...] encounter Miscellaneous Notes * Telephone Encounter - Jono Carrillo RN - 02/07/2023 11:52 AM EDT Please review request below and advise. Thank you. * Telephone Encounter - Olga Carrillo - 02/07/2023 10:19 AM EDT Tc from pt requesting a new blood glucose meter. Any questions, please contact pt at [phone] documented in this encounter Plan of Treatment Upcoming Encounters Date Type Department Care Team (Late st Contact Info) Description 09/20/2024 10:30 AM EDT Office Visit [facility] [address] [place], [place] [phone] Maranda Craig, OD [address] [place] [address] documented as of this encounter Visit Diagnoses Not on filedocumented in this encounter Care Teams Contact Acid Plant Operator Helper Relationship Specialty Start Date End Date Alhaji Noel MD [address] [place] [address] PCP - General Internal Medicine 06/26/18 Leslie Rojas District Scout ExecutiveShoe Repair Cobbler 10/31/23 documented as of this encounter
--- OUTSIDE RECORDS SUMMARY | 2024-08-20 11:55 | XMS_ITS | Encounter Summary ---
Author Organization [employer] Address [address] [place] [address] [address] [place] [address] Care Team Providers Care Stone Setter Apprentice Name Role Phone Alhaji Noel MD Primary Care Provider +1- [phone] Reason for Visit * Reason Onset Date Comments Nurse Triage 08/19/2024 Encounter Details Date Type Department Care Team ([facility] st Contact Info) Description 08/19/2024 Telephone [facility] MED & PEDS [address] [place] [address] Alhaji Noel MD [address] [place] [address] Nurse Triage Social History Tobacco Use Types Packs/Day Years [...] encounter Miscellaneous Notes * Telephone Encounter - Oanh Chairez RN - 08/19/2024 2:00 PM EST Called pt. No answer. Phone just kept ringing. Called back x2. Left message on voicemail to please call back [phone] if she wants to try to get a slot in [facility] this afternoon in [facility]. [facility]. RE: knee pain trouble walking * Telephone Encounter - Mariya Hernandez - 08/19/2024 1:55 PM EST Symptom: Knee Pain - Not From Injury Outcome: Schedule an urgent appointment (within 1 hour) or talk to a nurse or provider soon Reason: Trouble walking The caller accepted this outcome. documented in this encounter Plan of Treatment Upcoming Encounters Date Type Department Care Team (Late st Contact Info) Description 09/20/2024 10:30 AM EDT Office Visit [facility] OPT[facility] [address] [place], [place] [phone] Maranda Craig, OD [address] [place] [address] documented as of this encounter Visit Diagnoses Not on filedocumented in this encounter Additional Health Concerns Assessment Noted Time PHQ-9 Depression Total Score: 3 04/11/20 23 10:36 AM EDT documented as of this encounter Care Teams Stone Setter Apprentice Relationship Specialty Start Date End Date Alhaji Noel MD [address] [place] [address] PCP - General Internal Medicine 06/26/18 Leslie Rojas Professional Services SpecialistDirector Surface Transportation 10/31/23 documented as of this encounter
--- OUTSIDE RECORDS SUMMARY | 2024-08-20 11:55 | XMS_ITS | Encounter Summary ---
Author Organization [employer] Address [address] [facility] 7 [place] [address] Care Team Providers Care Manager Unix Name Role Phone Alhaji Noel MD Primary Care Provider [phone]- [phone] Reason for Visit * Reason Comments Med Refill Encounter Details Date Type Department Care Team (Late Contact Info) Description 07/01/2022 Refill [facility] MEDICINE [address] [place] [address] Reynaldo Mills FNP Viral upper respiratory tract infection Social History [...] PM EST documented as of this encounter Plan of Treatment Upcoming Encounters Date Type Department Care Team (Late Contact Info) Description 09/20/2024 10:30 AM EDT Office Visit [facility] OPTOMETRY [address] [place], [place] [phone] Maranda Craig, OD [address] [place] [address] documented as of this encounter Visit Diagnoses Diagnosis Viral upper respiratory tract infection Acute upper respiratory infections of unspecified site documented in this encounter Care Teams Manager Unix Relationship Specialty Start Date End Date Alhaji Noel MD [address] [place] [id number] PCP - General Internal Medicine 06/26/18 Leslie Rojas MycologistClient Support Representative 10/31/23 documented as of this encounter
--- OUTSIDE RECORDS SUMMARY | 2024-08-20 11:55 | XMS_ITS | Encounter Summary ---
Author Organization [employer] Address [address] [facility] 7 [place] [address] Care Team Providers Care Dental Intern Name Role Phone Alhaji Noel MD Primary Care Provider [phone]- [phone] Reason for Visit * Reason Onset Date Comments PT1 07/11/2023 Encounter Details Date Type Department Care Team ([facility] st Contact Info) Description 07/11/2023 Telephone [facility] MEDICINE [address] [place] [address] Alhaji Noel MD [address] [facility] [place], [place] [phone] PT1 Social History Tobacco Use Types Packs/Day [...] encounter Miscellaneous Notes * Telephone Encounter - Maureen Saba - 07/11/2023 3:28 PM EST PT-1 submitted for patient. They will receive a letter of approval or denial in the mail. * Telephone Encounter - Briana Phillips - 07/11/2023 11:03 AM EST PT1 renew request Date: n/a Time: n/a Visits: n/a Address: [address] [place] [address] Facility: [facility] Wheel Chair: no Outpatient Admitting Clerk Needed: no documented in this encounter Plan of Treatment Upcoming Encounters Date Type Department Care Team (Late st Contact Info) Description 09/20/2024 10:30 AM EDT Office Visit [facility] OPTOMETRY [address] [place] [address] Maranda Craig, OD [address] [place] [address] documented as of this encounter Visit Diagnoses Not on filedocumented in this encounter Additional Health Concerns Assessment Noted Time PHQ-9 Depression Total Score: 3 04/11/20 23 10:36 AM EDT documented as of this encounter Care Teams Dental Intern Relationship Specialty Start Date End Date Alhaji Noel MD [address] [place] [phone] PCP - General Internal Medicine 06/26/18 Leslie Rojas Quill Machine TenderEap Specialist 10/31/23 documented as of this encounter
--- OUTSIDE RECORDS SUMMARY | 2024-08-20 11:55 | XMS_ITS | Encounter Summary ---
Author Organization [employer] Address [address] [facility] 7 [place] [address] Care Team Providers Care Network Operations Manager Name Role Phone Alhaji Noel MD Primary Care Provider [phone]- [phone] Encounter Details Date Type Department Care Team ([facility] st Contact Info) Description 08/19/2024 Telephone [facility] MEDICINE [address] [place] [address] Alhaji Noel MD [address] [place], [place] [phone] Social History Tobacco Use Types Packs/Day Years [...] Encounter - Oanh Chairez RN - 08/19/2024 2:46 PM EST Called pt. She states that she has bilateral knee pain and has been having trouble walking. No swelling, no redness or black and blue on knees. No lower leg swelling noted by pt. No injury. Pt. Requesting an uber for tomorrow am to bring her to walk in. 830am order picker/assembler and address and telephone number confirmed with pt. Protocol Used: Knee Pain (Adult) Protocol-Based Disposition: Set up Uber ride with pt. For 08/20/24 at 830am to pick her up from homeand bring her to [facility] walk in Video visit offer not recorded Positive Triage Question: * Moderate pain (e.g., symptoms interfere with work or school, limping) and present > 3 days * All higher-acuity triage questions were negative Care Advice Discussed: * Pain Medicines * Pain Medicines - Extra Notes and Warnings * Using Heat for Pain * Use Heat After 48 Hours for Pain * Rest * Pain Medicines * Wear the Right Shoe for the Right Activity documented in this encounter Plan of Treatment Upcoming Encounters Date Type Department Care Team (Late st Contact Info) Description 09/20/2024 10:30 AM EDT Office Visit [facility] OPTOMETRY [address] [place] [address] Maranda Craig OD [address] [place] [address] documented as of this encounter Visit Diagnoses Not on filedocumented in this encounter Additional Health Concerns Assessment Noted Time PHQ-9 Depression Total Score: 3 04/11/20 23 10:36 AM EDT documented as of this encounter Care Teams Network Operations Manager Relationship Specialty Start Date End Date Alhaji Noel MD [address] [place] [id number] PCP - General Internal Medicine 06/26/18 Leslie Rojas Fish WardenAnode Crew Supervisor 10/31/23 documented as of this encounter
--- OUTSIDE RECORDS SUMMARY | 2024-08-20 11:55 | XMS_ITS | Clinical Summary ---
Author Organization [employer] Address [address] [place] [address] Care Team Providers Care Warehouse Material Handler Name Role Phone Alhaji Noel MD Primary Care Provider [phone] Allergies No known active allergies Medications aspirin (Arianna Low Dose) 81 MG EC tablet Take 1 tablet by mouth 1 (one) time each day. 11/13/19 22 Active calcium carbonate (Os-Ousmane) 1250 (500 Ca) MG tablet Take 1 tablet by mouth in the morning. 03/11/20 22 Active simvastatin (Zocor) 40 MG tablet Take 1 tablet (40 mg) by mouth at bedtime. 90 tablet 3 11/08/19 23 Active Neomycin-Polymyxi n-HC 1 % solutionIndicatio ns:Other infective acute otitis externa of right ear Administer 4 drops into affected ear(s) 4 times daily. 10 mL 11/10/19 23 Active sertraline (Zoloft) 50 MG tablet Take 1 tablet (50 mg) by mouth in the morning. 30 tablet 5 07/17/19 24 Active NIFEdipine XL (Procardia XL) 90 MG 24 hr tablet Take 1 tablet (90 mg) by mouth in the morning. Do not crush, chew, or split. 90 tablet 1 07/17/19 24 Active Oyster Shell Calcium 500 MG tablet Take 1 tablet by mouth in the morning. 90 tablet 1 07/17/19 24 Active ketotifen (Zaditor) 0.025 % ophthalmic solutionIndicatio ns:Viral upper respiratory tract infection ADMINISTER 1 DROP INTO BOTH EYES 2 TIMES DAILY (30 DAY SUPPLY PER INSURANCE) 10 mL 07/17/19 24 Active glucose blood (FREESTYLE LITE) test stripIndications: Diabetes mellitus without complication (CMS/HCC) To check the FS once a day ( Fasting) 100 strip 11 08/07/19 24 Active TRUEplus Lancets 33G miscIndications:D iabetes mellitus without complication (CMS/HCC) USE TO TEST BLOOD SUGAR ONCE A DAY 100 each 3 08/10/19 24 Active rosuvastatin (Crestor) 10 MG tabletIndications :Hypercholesterol emia Take 1 tablet (10 mg) by mouth in the morning. 30 tablet 08/25/19 24 2024 Active Azelastine HCl 137 MCG/SPRAY solutionIndicatio ns:Rhinosinusitis ADMINISTER 2 SPRAYS INTO EACH NOSTRIL 2 TIMES DAILY. USE IN EACH NOSTRIL DIRECTED 30 mL 10/09/19 24 Active albuterol 108 (90 Base) MCG/ACT inhalerIndication s:Mild intermittent asthma without complication Inhale 2 puffs every 4 (four) hours. inhale 2 puff by inhalation route every 4 - 6 hours as needed 18 g 11/07/19 24 Active Blood Glucose Monitoring Suppl (FreeStyle Lite) w/Device kitIndications:Di abetes mellitus without complication (CMS/HCC) 1 each Once per day. 1 kit 11/07/19 24 2024 Active triamcinolone (Kenalog) 0.5 % cream APPLY TO AFFECTED AREA 3 TIMES A DAY 90 g 12/18/19 24 Active Neomycin-Polymyxi n-HC 1 % solutionIndicatio ns:Other infective acute otitis externa of right ear ADMINISTER 4 DROPS INTO AFFECTED EAR(S) 4 TIMES DAILY. 10 mL 12/18/19 24 Active Neomycin-Polymyxi n-HC 1 % solutionIndicatio ns:Other infective acute otitis externa of right ear ADMINISTER 4 DROPS INTO AFFECTED EAR(S) 4 TIMES DAILY. 10 mL 01/23/20 24 Active omeprazole (PriLOSEC) [address] capsule TAKE 1 CAPSULE (20 MG) BY MOUTH BEFORE BREAKFAST DO NOT CRUSH OR CHEW 90 capsule 1 01/23/20 24 Active betamethasone valerate (Valisone) 0.1 % cream APPLY TOPICALLY IF NEEDED IN THE MORNING AND AT BEDTIME (DRYNESS). 45 g 01/23/20 24 Active hydrOXYzine HCl (Atarax) 25 MG tabletIndications :Allergic contact dermatitis due to other chemical products TAKE 1 TABLET BY MOUTH EVERY 12 HOURS 180 tablet 1 03/18/20 24 Active Blood Glucose Monitoring Suppl (Futuretec Lite) w/Device kitIndications:Di abetes mellitus without complication (CMS/HCC) Use to test blood sugar 2 times daily 1 kit 04/17/20 24 Active Alcohol Swabs (Alcohol Prep) pads Use 3 times a day 100 each 11 05/08/20 24 Active cetirizine (ZyrTEC) 10 MG tabletIndications :Rhinosinusitis TAKE 1 TABLET BY MOUTH EVERY DAY IN THE MORNING 90 tablet 3 07/11/19 25 Active fluticasone (Flonase) 50 MCG/ACT nasal sprayIndications: Viral upper respiratory illness Administer 2 sprays into each nostril Once per day. Shake gently. Before first use, prime pump. After use, clean tip and replace cap. 48 mL 3 07/11/19 25 2025 Active sodium chloride ([place]al [place]) 0.65 % nasal spray Administer 2 sprays into each nostril if needed for congestion. 30 mL 5 07/11/19 25 2025 Active ibuprofen 600 MG tabletIndications :Other infective otitis externa, right ear Take 1 tablet (600 mg) by mouth every 6 (six) hours if needed for mild pain. TAKE 1 TABLET (600 MG) BY MOUTH EVERY 8 (EIGHT) HOURS IF NEEDED FOR MILD PAIN FOR UP TO 10 DAYS. 30 tablet 1 07/11/19 25 Active bacitracin 500 UNIT/GM ointment APPLY TO AFFECTED AREA TWICE A DAY 14.2 g 08/06/19 25 Active lisinopril-hydroC HLOROthiazide 10-12.5 MG tablet TAKE 1 TABLET BY MOUTH EVERY DAY IN THE MORNING 90 tablet 3 08/09/19 25 Active levothyroxine (Synthroid, Levoxyl) 100 MCG tabletIndications :Acquired hypothyroidism TAKE 1 TABLET BY MOUTH DAILY BEFORE BREAKFAST 90 tablet 2 08/09/19 25 Active metFORMIN (Glucophage) 500 MG tablet TAKE 1 TABLET BY MOUTH TWICE A DAY EVERY 12 HOURS 180 tablet 1 08/09/19 25 Active celecoxib (CeleBREX) 200 MG capsule Take 1 capsule (200 mg) by mouth 2 times daily for 20 days. 40 capsule 08/20/19 25 2024 Active lisinopril-hydroC HLOROthiazide 10-12.5 MG tablet Take 1 tablet by mouth in the morning. 90 tablet 3 07/17/19 24 2024 Discontinued levothyroxine (Synthroid, Levoxyl) 100 MCG tabletIndications :Acquired hypothyroidism Take 1 tablet (100 mcg) by mouth before breakfast. 90 tablet 2 07/17/19 24 2024 Discontinued metFORMIN (Glucophage) 500 MG tablet TAKE 1 TABLET BY MOUTH TWICE A DAY EVERY 12 HOURS 180 tablet 1 01/09/20 24 2024 Discontinued bacitracin (RA Bacitracin) 500 UNIT/GM ointment Apply topically 2 times daily. 14 g 06/24/20 24 2024 Discontinued benzonatate (Tessalon Perles) 100 MG capsule Take 1 capsule (100 mg) by mouth if needed in the morning, at noon, and at bedtime for cough for up to 10 days. Do not crush or chew. 30 capsule 07/11/19 25 2024 acetaminophen (Tylenol 8 Hour) 650 MG ER tablet Take 1 tablet (650 mg) by mouth every 8 (eight) hours if needed for mild pain. Do not crush, chew, or split. 30 tablet 1 07/11/19 25 2024 Active Problems Problem Noted Date Diagnosed Date Diabetes mellitus without complication Pain in face 06/03/2022 Dry ear canal, bilateral 06/03/2022 Assessment & Plan (06/03/2022 2:22 PM EST): Will send trial of acetic acid-hydrocortisone Hypercholesterolemia 08/10/2021 Hypertensive disorder 02/23/2021 Otalgia of both ears 11/22/2017 Acquired hypothyroidism 04/07/2015 Mood disorder 04/07/2015 Obesity 04/07/2015 Resolved Problems Problem Noted Date Diagnosed Date Resolved Date Rhinosinusitis 12/14/2022 07/11/2024 Assessment & Plan (05/27/2023 11:48 AM EST): -Rapid FluA&B, strep, and COVID negative (no rapid RSV available). Confirmatory testing sent to lab. -Initial recommendation for supportive measures and observation x 7 days to see if symptoms improve (therefore suggestive of viral pathogen). However, pt reports difficult for her to return to clinic, and similar situations in past have necessitated abx -Shared decision making to proceed with abx tx: Augmentin BID x 5 days. Reviewed med use, safety, and SE -ED/urgent care precautions reviewed Assessment & Plan (12/14/2022 1:32 PM EDT): Recommended supportive care and will rx antibiotics due to duration of symptoms. Recommended rtc if no improvement of symptoms. Viral upper respiratory tract infection 11/22/2017 07/11/2024 Assessment & Plan (06/03/2022 2:22 PM EST): Normal lung exam, nasal congestion and R conjunctival injection likely viral. Sent ketotifen. rtc if no improvement Encounters Date Type Department Care Team Description 08/20/2024 9:40 AM EST Office Visit [facility] [address] [place] [phone] Name, MD Trevor Chronic knee pain, unspecified laterality (Primary Dx) 08/19/2024 Telephone [facility] [address] [place] [address] Alhaji Noel MD 08/19/2024 Telephone [facility] [address] [place] [address] Alhaji Noel MD Nurse Triage 08/08/2024 Refill [facility] [address] [place] [address] Alhaji Noel MD Acquired hypothyroidism 08/06/2024 Refill [facility] [address] [place] [address] Alhaji Noel MD 07/26/2024 Telephone [facility] [address] [place] [address] Maranda Craig, OD 07/11/2024 10:00 AM EST Office Visit [facility] [address] [place] [phone] Jurcsak, Aby, DO Acute non-recurrent maxillary sinusitis; Rhinosinusitis; Viral upper respiratory illness; Other infective otitis externa, right ear 07/04/2024 Travel 07/02/2024 Patient Outreach [facility] [address] [place] [address] Alhaji Noel MD Care Coordination (CHW outreach for SDOH PT-1 and food needs-referral completed /) 07/02/2024 Telephone [facility] [address] [place] [address] Alhaji Noel MD PT1 06/24/2024 3:00 PM EST Office Visit [facility] [address] [place] [phone] Alhaji Noel MD Herpes labialis (Primary Dx) 06/24/2024 Telephone [facility] [address] [place] [address] Alhaji Noel MD triage pt 1 out of 2 06/13/2024 Patient Outreach [facility] [address] [place] [address] Alhaji Noel MD Care Coordination (CHW outreach for SDOH PT-1 and food needs-referral completed /) 06/12/2024 Telephone [facility] [address] [place] [phone] Alhaji Noel MD PT1 from Last 3 Months Immunizations Name Administration Dates Next Due Influenza Injectable Quadriv alant Preservative Free IIV4 MDCK 03/06/2020,03/13/2019 Influenza injectable quadriv alent IIV4 with preservative 04/07/2015 Influenza injectable quadriv alent preservative free 04/11/2023,08/10/2021,03/17/2018,03/02 Influenza, IIV3, injectable 04/02/2012, 0,03/06/2009 Influenza, seasonal, injecta ble, preservative free 04/17/2024 Novel [id number], preservative-free 04/13/2009 Pfizer Covid-19 Vaccine 12+ 04/17/2024 Pneumococcal Polysaccharide PPSV23 04/17/2024,,11/21/2013 Tdap 03/06/2020,01/09/2008,10/10/2007 Family History Medical History Relation Name Comments Breast cancer Maternal Grandmother Relation Name Status Comments Maternal Grandmother Social History Tobacco Use Types Packs/Day Years Used Date Smoking Tobacco: Never Passive Smoke Exposure: Never Smokeless Tobacco: Never Tobacco Cessation:Counseling Given: Not Answered Alcohol Use Standard Drinks/Week Comments Never 0 [...] Orientation Straight 04/25/2022 10 :19 AM EDT Last Filed Vital Signs Vital Sign Reading Time Taken Comments Blood Pressure 140/82 08/20/2024 9:44 AM EST Pulse 74 08/20/2024 9:44 AM EST Temperature 36.8 ??C (98.3 ??F) 08/20/2024 9:44 AM ES T Respiratory Rate 18 08/20/2024 9:44 AM EST Oxygen Saturation 98% 08/20/2024 9:44 AM EST Inhaled Oxygen Concentration - - Weight 149 kg (329 lb) 08/20/2024 9:44 AM EST Height 157.5 cm (5' 2 ) 06/24/2024 2:04 PM EST Body Mass Index 60.17 06/24/2024 2:04 PM EST Plan of Treatment Upcoming Encounters Date Type Department Care Team (Late st Contact Info) Description 09/20/2024 10:30 AM EDT Office Visit [facility] [address] [place] [address] Rafa, Maranda, OD [address] [place] [address] Health Maintenance Due Date Last Done Comments CT Colonography 1975 Colonoscopy 1975 Colorectal Cancer Screening 1975 FIT DNA/Cologuard 1975 FIT 1975 FOBT 1975 Sigmoidoscopy 1975 Alcohol/Substance Use Screening 1987 Family Planning (PISQ) 1990 Hepatitis B Vaccines (1 of 3 - 19+ 3-dose series) 1994 Mammogram 2015 Pap Smear 01/20/2023 01/21/2020 Diabetes: Urine Protein Screening 03/08/2023 03/08/2022, 08/10/2021 SDOH Screening 02/16/2024 02/15/2023 Depression Screening 04/11/2024 04/11/2023, 04/11/20 23 Diabetes: Foot Exam 04/11/2024 04/11/2023, 04/11/2023, 04/11/2023, Additional history exists Lipid Panel 08/23/2024 08/24/2023, 02/24, 08/10/2021 Dental Oral Exam 09/16/2024 03/18/2024, 02/2022, 2019, Additional history exists Dental Prophylaxis 09/23/2024 03/25/2024, 0 08/04/2021, 06/08/2017, Additional history exists Diabetes: Hemoglobin A1C 10/16/2024 024, 08/24/2023, 04/11/2023 Cervical Cancer Screening 01/20/2025 HPV/Cotest 01/20/2025 01/21/2020 Zoster Vaccines (1 of 2) 2025 Pneumococcal Vaccine: Pediatrics (0 to 5 Years) and At-Risk Patients (6 to 49) Years) (2 of 2 - PCV) 04/17/2025 04/17/2024, 01/03/2020, 11/21/2013 Dental X-Ray: Bitewings 05/04/2025 05/03/20, 03/18/2024, 08/04/2021, Additional history exists Eye Exam 06/09/2025 06/09/2023, 05/26, 06/09/2023, Additional history exists Tobacco Screening 07/11/2025 07/11/2024 Dental X-Ray: Full Mouth 2027 03/18/2024, 06/27 DTaP/Tdap/Td Vaccines (6 - Td or Tdap) 10/01/2033 10/02/2023, 03/06/2020, 12/15/2016, Additional history exists RSV Patients and Patients Aged 60 years or older (1 - 1-dose 75+ series) 2050 HIV Screening Completed 08/24/2023 Hepatitis C Screening Completed 08/24/2023 COVID-19 Vaccine Completed 04/17/2024, , 09/16/2020 Influenza Vaccine Completed 04/17/2024, , 08/10/2021, Additional history exists HIB Vaccines Aged Out No longer eligi [...] patient's age to complete this topic Meningococcal Vaccine Aged Out No govind viki eligible based on patient's age to complete this topic RSV under 20 months Aged Out No longe r eligible based on patient's age to complete this topic Rotavirus Vaccines Aged Out No longer eligible based on patient's age to complete this topic Procedures Procedure Name Priority Date/Time Associated Diagnosis Comments POCT RAPID STREP A Routine 07/11/2024 10 :21 AM EST Acute non-recurrent maxillary sinusitis POCT INFLUENZA B (ID NOW RAPID MOLECULAR) Routine 07/11/2024 10:20 AM EST Acute non-recurrent maxillary sinusitis POCT INFLUENZA A (ID NOW RAPID MOLECULAR) Routine 07/11/2024 10:20 AM EST Acute non-recurrent maxillary sinusitis POCT RAPID COVID ANTIGEN Routine 07/11/2024 10:20 AM EST Acute non-recurrent maxillary sinusitis BITEWING - SINGLE RADIOGRAPHIC IMAGE Routine 05/03/2024 10:00 AM EST POCT GLYCATED HEMOGLOBIN, TOTAL Routine 04/17/2024 2:48 PM EDT Diabetes mellitus without complication (CMS/HCC) PROPHYLAXIS - ADULT Routine 03/25/2024 9 :00 AM EDT INTRAORAL - COMPLETE SERIES OF RADIOGRAPHIC IMAGES Routine 03/18/2024 9:30 AM EDT COMPREHENSIVE ORAL EVALUATION - NEW OR ESTABLISHED PATIENT Routine 03/18/2024 9:30 AM EDT HEPATITIS C ANTIBODY Routine 08/24/2023 10:56 AM EST Diabetes mellitus without complication (CMS/HCC) Hypercholesterolemia Acquired hypothyroidism HIV 1/2 ANTIGEN/ANTIBODY, FOURTH GENERATION W/RFL Routine 08/24/2023 10:56 AM EST Diabetes mellitus without complication (CMS/HCC) Hypercholesterolemia Acquired hypothyroidism LIPID PANEL, STANDARD Routine 08/24/2023 10:56 AM EST Diabetes mellitus without complication (CMS/HCC) Hypercholesterolemia Acquired hypothyroidism ALBUMIN, RANDOM URINE W/CREATININE Routine 03/08/2022 10:10 AM EDT HPV MRNA E6/E7 Routine 01/21/2020 10:20 AM EDT THINPREP PAP Routine 01/21/2020 10:20 AM EDT from Last 3 Months or Most Recently Relevant to Health Maintenance Results * POCT rapid strep A manually resulted (07/11/2024 10:21 AM EST) [facility] Rapid Strep A Screen Negative Negative, None Detected Swab 07/11/2024 10:2 1 AM EST Aby Arreaga DO POINT OF CARE TEST ENTER/JOSELYN T ORDERABLES Final Result * Influenza B (ID NOW Rapid Molecular) (07/11/2024 10:20 AM EST) [facility] Influenza B Negative Negative, Indeterminate [facility] Swab 07/11/2024 10:2 0 AM EST Aby Arreaga DO POINT OF CARE TEST ENTER/JOSELYN T ORDERABLES Final Result Performing Organization Address [facility]/ZIP Co de Phone Number [facility] [address] [place] [phone] * Influenza A (ID NOW Rapid Molecular) (07/11/2024 10:20 AM EST) [facility] Influenza A Negative Negative, Indeterminate [facility] Swab 07/11/2024 10:2 0 AM EST Aby Arreaga DO POINT OF CARE TEST ENTER/JOSELYN T ORDERABLES Final Result Performing Organization Address [facility]/ZIP Co de Phone Number [facility] [address] [place] [phone] * POCT Rapid COVID Ag (07/11/2024 10:20 AM EST) [facility] Rapid COVID Ag Negative [facility] Swab 07/11/2024 10:2 0 AM EST Aby Arreaga DO POINT OF CARE TEST ENTER/JOSELYN T ORDERABLES Final Result Performing Organization Address [facility] Co de Phone Number [facility] [address] [place] [address] [phone] * POCT HGB A1C (04/17/2024 2:48 PM EDT) Hemoglobin A1C 5.6 4.0 - 6.0 % QC Media Lot # [id number] Lot# Expiration Date Blood 04/17/2024 2:48 PM EDT Alhaji Noel MD POINT OF CARE TEST ENTER/ED IT ORDERABLES Final Result * Hepatitis C Ab (08/24/2023 10:56 AM EST) Hepatitis C Antibody Nonreactive Nonreactive [facility] Comment:Antibodies to HCV no t detected; does not exclude early acuteHCV infection. Blood Venous blood specimen / Unknown 08/24/2023 10:56 AM EST 08/24/2023 2:03 PM EST Alhaji Noel MD LAB BLOOD ORDERABLES Final Result Performing Organization Address [facility] Co de Phone Number [facility] [address] [place] [phone] * HIV-1/2 Antigen and Antibodies, Fourth Generation, with Reflexes (08/24/2023 10:56 AM EST) HIV AB/AG Nonreactive Nonreactive [facility] Comment:HIV-1 p24 Ag and/or HIV-1/HIV-2 Ab not detected.A test result that is nonreactive does not exclude thepossibility of exposure to or infection with HIV-1 and/orHIV-2. Nonreactive results in this assay for individualswith prior exposure to HIV-1 and/or HIV-2 may be due toantigen and antibody levels that are below the limit ofdetection of this assay.The [employer] HIV Ag/Ab Combo assay result andsupplemental assay results should be interpreted inconjunction with the patient's clinical presentation,history and other laboratory results. If the results areinconsistent with clinical evidence, additional testing issuggested to confirm the result. Blood Venous blood specimen / Unknown 08/24/2023 10:56 AM EST 08/24/2023 2:03 PM EST us Alhaji Noel MD LAB BLOOD ORDERABLES Final Result [facility] [address] [place] [address] [phone] * (ABNORMAL) Lipid Panel, Standard (08/24/2023 10:56 AM EST) Triglycerides 156(H) <150 mg/dL [facility] Comment:Desirable Triglyceri de: less than 150 mg/dLBorderline High Triglyceride 150-199 mg/dLHigh Triglyceride: 200-499 mg/dLVery High Triglyceride: greater than or equal to 5OO mg/dL Cholesterol 245(H) <200 mg/dL [facility] Comment:Desirable Cholestero l: less than 200 mg/dLBorderline High Cholesterol: 200-239 mg/dLHigh Cholesterol: greater than 239 mg/dL LDL Cholesterol Calculated 164(H) <100 mg/dL [facility] Comment:Desirable LDL: less than 100 mg/dLNear Optimal/Above Optimal LDL: 110- 129 mg/dLBorderline High LDL: 130-159 mg/dLHigh LDL: 160-189 mg/dLVery High LDL: greater than or equal to 190 mg/dL HDL Cholesterol 50 >40 mg/dL [facility] Comment:Desirable HDL: great er than 40 mg/dL Note: This HDL assay may give artificially low results in patients with liver disease. Blood Venous blood specimen / Unknown 08/24/2023 10:56 AM EST 08/24/2023 2:03 PM EST us Alhaji Noel MD LAB BLOOD ORDERABLES Final Result Performing Organization Address [facility]/ZIP Co de Phone Number [facility] [address] [place] [address] [phone] * ALBUMIN, RANDOM URINE W/CREATININE (03/08/2022 10:10 AM EDT) Microalbumin Urine 1.7 See Note: mg/dL [facility] Comment: Reference Range: ?? Reference Range Not established Microalb/Creat Ratio 9 <30 mcg/mg creat [facility] Comment: ?? The ADA defines abnormalities in albumin excretion as follows: ?? Albuminuria Category ?Result (mcg/mg creatinine) ?? Normal to Mildly increased ?? <30 Moderately increased ? 30-299 ?? Severely increased ? > OR = 300 ?? The ADA recommends that at least two of three specimens collected within a 3-6 month period be abnormal before considering a patient to be within a diagnostic category. Creatinine, Urine 196 20 - 275 mg/dL [facility] 03/08/2022 10:1 0 AM EDT Alhaji Noel MD LAB URINE ORDERABLES Final Result Performing Organization Address [facility] Co de Phone Number [facility] [address] [place] [address], * THINPREP PAP (01/21/2020 10:20 AM EDT) Pathologist [facility] Clinical Information: SEE COMMENT [facility] Comment:None given COMMENT SEE COMMENT [facility] Comment: EXPLANATORY NOTE: ? The Pap is a screening test for cervical cancer. It is ?? not a diagnostic test and is subject to false negative ?? and false positive results. It is most reliable when a ?? satisfactory sample, regularly obtained, is submitted ?? with relevant clinical findings and history, and when ?? the Pap result is evaluated along with historic and ?? current clinical information. ?? Director Of Planning: SEE COMMENT [facility] Comment: ALS, CT(ASCP) CT screening location: [address] ??[phone] Interpretation/Resu lt: SEE COMMENT [facility] Comment:Negative for intraep ithelial lesion or malignancy. LMP: SEE COMMENT [facility] Comment:NONE GIVEN Prev. BX: NONE GIVEN [facility] Prev. PAP: SEE COMMENT [facility] Comment:NONE GIVEN SOURCE: SEE COMMENT [facility] Comment:None given Statement Of Adequacy: SEE COMMENT [facility] Comment: Satisfactory for evaluation. Endocervical/transformation zone component absent. Age and/or menstrual status not provided 01/21/2020 10:2 0 AM EDT [facility] PATHOLOG[facility] ORDERABLES Final Result Performing Organization Address [facility] de Phone Number [facility] [address] * HPV mRNA E6/E7 (01/21/2020 10:20 AM EDT) HPV nRNA E6/E7 Not Detected Not Detected [facility] Comment: This test was performed using the APTIMA HPV Assay ([employer] ?? This assay detects E6/E7 viral messenger RNA (mRNA) from 14 high-risk HPV types (16,18,31,33,35,39,45,51,52,56,58,59,66,68). ?? The analytical performance characteristics of this assay have been determined by [employer]. The modifications have not been cleared or approved by the FDA. This assay has been validated pursuant to the CLIA regulations and is used for clinical purposes. 01/21/2020 10:2 0 AM EDT [facility] BLOOD ORDERABLES Barbara l Result Performing Organization Address [facility] de Phone Number [facility] [address] from Last 3 Months or Most Recently Relevant to Health Maintenance [place] [facility] MEDICAID STAND ADULT Care Teams Warehouse Material Handler Relationship Specialty Start Date End Date Alhaji Noel MD [address] [place] [address] ADA Scott PCP - General Internal Medicine 06/26/18 Leslie Rojas Double Cut SawyerLithographer Helper 10/31/23
--- OUTSIDE RECORDS SUMMARY | 2024-08-20 11:55 | XMS_ITS | Encounter Summary ---
Author Organization [employer] Address [address] [place] [address] Care Team Providers Care Physiologist Name Role Phone Alhaji Noel MD Primary Care Provider [phone]- [phone] Encounter Details Date Type Department Care Team ([facility] Contact Info) Description 02/16/2023 Orders Only [facility] MED & PEDS [address] [place], [place] [phone] Aby Harden LPN Social History Tobacco Use Types Packs/Day Years [...] Description 09/20/2024 10:30 AM EDT Office Visit [facility] OPTOMETRY [address] [place], [place] [phone] Maranda Craig, OD [address] [place] [address] documented as of this encounter Visit Diagnoses Not on filedocumented in this encounter Care Teams Physiologist Relationship Specialty Start Date End Date Alhaji Noel MD [address] [place] [id number] PCP - General Internal Medicine 06/26/18 Leslie Rojas [employer] Line Servicer[employer]mitation Marble Mechanic 10/31/23 documented as of this encounter
--- OUTSIDE RECORDS SUMMARY | 2024-08-20 11:56 | XMS_ITS | Encounter Summary ---
Author Organization [employer] Address [address] [facility] [address] [place] [address] Care Team Providers Care Polytechnic Registrar Name Role Phone Alhaji Noel MD Primary Care Provider [phone]- [phone] Reason for Visit * Reason Comments Med Refill Encounter Details Date Type Department Care Team ([facility] st Contact Info) Description 08/08/2024 Refill [facility] MED & PEDS [address] [place], [place] [phone] Alhaji Noel MD [address] [place] [address] Acquired hypothyroidism Social History Tobacco Use Types Packs/Day Years [...] Description 09/20/2024 10:30 AM EDT Office Visit [facility] OPTOMETRY [address] [place] [address] Rafa, Maranda, OD [address] [facility] [place] [address] documented as of this encounter Visit Diagnoses Diagnosis Acquired hypothyroidism Unspecified hypothyroidism documented in this encounter Additional Health Concerns Assessment Noted Time PHQ-9 Depression Total Score: 3 04/11/20 23 10:36 AM EDT documented as of this encounter Care Teams Polytechnic Registrar Relationship Specialty Start Date End Date Alhaji Noel MD [address] [place] [id number] PCP - General Internal Medicine 06/26/18 Leslie Rojas Resourcing ConsultantFbi Sharpshooter 10/31/23 documented as of this encounter
== END 2024-08-20 10:12 | disposition home or self-care (01) ==
LOC: HO.HHCX 10:11
PROVIDERS: Visit Provider Internal Medicine Geriatric Medicine
DX: M25.562 Pain in left knee (principal); G89.29 Other chronic pain; M25.561 Pain in right knee
CPT/HCPCS: 73564

== ENCOUNTER → 2024-08-20 10:11 | Outpatient (BNV) | payer MEDICAID, SELFPAY | PROVIDERS: Visit Provider Radiology Diagnostic Radiology | DX: M17.0 Bilateral primary osteoarthritis of knee (principal) | CPT/HCPCS: 73564 ==

== ENCOUNTER 2025-06-06 09:58 | Outpatient (REF) | payer MEDICAID, SELFPAY ==
[2025-06-06 15:08] LABS: MANUAL DIFF FLAG NO
[2025-06-06 15:20] LABS: Hematocrit 41.2 % (37.0-47.0); Hemoglobin 13.1 g/dl (12.0-16.0); Imm Gran Abs Auto 0.04 X10*3/uL (0.00-0.03); Imm Gran Pct Auto 0.4 % (0.0-0.4); Lymphocytes Absolute Auto 3.7 X10*3/uL (1.2-4.9); Mean Corpuscular HGB Conc 31.8 g/dl (31.0-35.0); Mean Corpuscular Hemoglobin 28.8 pg (27.0-33.0); Mean Corpuscular Volume 90.5 fL (80.0-98.0); NRBC Abs Auto 0.000 X10*3/uL (0.0-0.012); NRBC Pct Auto 0.0 /100WBC (0.0-0.2); Platelet Count 427 X10*3/uL (160-400); Red Blood Count 4.55 X10*6/uL (4.20-5.50); White Blood Count 10.7 X10*3/uL (4.8-10.8)
[2025-06-06 15:47] LABS: Alanine Aminotransferase 15 U/L (0-31); Albumin Level 4.3 g/dL (3.5-5.0); Alkaline Phosphatase 82 U/L (39-117); Anion Gap 13 (12-20); Aspartate Amino Transferase 18 U/L (5-31); Blood Urea Nitrogen 14 mg/dL (9-16); Calcium 9.0 mg/dL (8.4-10.2); Carbon Dioxide 28 mmol/L (22-29); Chloride 105 mmol/L (96-108); Estimated Glomerular Filt Rate > 60; Potassium 3.5 mmol/L (3.3-5.1); Sodium 142 mmol/L (135-145); Total Protein 7.5 g/dL (6.5-8.0)
[2025-06-06 16:02] LABS: Microalbum/Creatinine Ratio Ur 8.2 ug/mg cr (<30)
== END 2025-06-06 09:59 | disposition home or self-care (01) ==
LOC: HO.CHCLDS 09:58
PROVIDERS: Visit Provider Internal Medicine
DX: E11.9 Type 2 diabetes mellitus without complications (principal)
CPT/HCPCS: 36415; 80053; 82043; 82570; 84443; 85025